=== PATIENT | female | born 1990 | race Caucasian/White ===

== ENCOUNTER 2023-03-12 11:19 | Emergency (ER) | payer MEDICARE, OTHER ==
[2023-03-12] MEDS ORDERED: KETOROLAC 15 MG/ML 1 ML VIAL IVP STA ×2 (11:48→15:04)
--- NOTE | 2023-03-12 11:51 | ED ---
Skin/Abscess/FB HPI - General Chief complaint: Skin/Abscess/Foreign Body Stated complaint: Cyst on Labia Time Seen by Provider: 03/12/23 11:31 Source: patient, RN notes reviewed Mode of arrival: ambulatory Limitations: no limitations - History of Present Illness Initial comments: This is a 32-year-old female who presents to the emergency department for an abscess on her labia. States that this started a couple of days ago. She is currently being treated at [facility], and states that she is no longer able to sit as a result of the pain. [facility] subsequently sent her to the emergency department to hopefully have this drained. States that she has developed cysts in the labia and axilla regions multiple times in the past. Some have been able to be simply drained and others have required surgery when they have gotten deeper. She denies any fevers or chills. She has not yet noticed any drainage from this. Denies any fevers, chills, sore throat, cough, dyspnea, chest pain, palpitations, abdominal pain, nausea, vomiting, diarrhea, back pain, or headaches. MD complaint: abscess/boil - Related Data Previous Rx's Medication Instructions Recorded Cephalexin [Keflex] 500 mg PO Q6HR 10 Days #40 cap 03/12/23 Ibuprofen [Motrin] 800 mg PO Q8H PRN #30 tab 03/12/23 Sulfamethox-Tmp 800-160Mg [Bactrim 1 tab PO Q12HR 10 Days #20 tab 03/12/23 DS 800-160 mg] Allergies Allergy/AdvReac Type Severity Reaction Status Date / Time fluticasone [From Flonase] AdvReac Rapid Verified 03/12/23 11:21 Heart Rate Review of Systems ROS Statement: Those systems with pertinent positive or pertinent negative responses have been documented in the HPI. ROS Other: All systems not noted in ROS Statement are negative. Past Medical History Additional Past Medical History / Comment(s): at [facility] for meth clean for 28 days History of Any Multi-Drug Resistant Organisms: None Reported Past Surgical History: Section, Tonsillectomy, Tubal Ligation Additional Past Surgical History / Comment(s): cyst removal , brain aneurysm Past Psychological History: Anxiety, Bipolar, Depression Smoking Status: Current every day smoker Past Alcohol Use History: None Reported Past Drug Use History: Methamphetamine General Exam Limitations: no limitations General appearance: alert, in no apparent distress Head exam: Present: atraumatic, normocephalic, normal inspection Respiratory exam: Present: normal lung sounds bilaterally. Absent: respiratory distress, wheezes, rales, rhonchi, stridor Cardiovascular Exam: Present: regular rate, normal rhythm, normal heart sounds. Absent: systolic murmur, diastolic murmur, rubs, gallop, clicks External exam: Present: other (Abscess to the inferior most aspect of the right labia majora tracking inferiorly to the perineal region.) Neurological exam: Present: alert, oriented X3, CN II-XII intact Psychiatric exam: Present: normal affect, normal mood Course Vital Signs 03/12/23 03/12/23 03/12/23 11:21 13:38 14:20 Temperature 98.2 F 98.0 F Pulse Rate 72 68 66 Respiratory 17 18 18 Rate Blood Pressure 128/70 126/78 134/87 O2 Sat by Pulse 100 98 100 Oximetry Procedures - Incision & Drainage Consent Obtained: verbal consent Indication: abscess Site: vulva/vagina Size (cm): 5 Anesthetic Used: lidocaine 1% Amount (mLs): 2 I&D Cleaning Method: Alcohol Wipe Sterile Field Used?: Yes Scalpel Used: #11 Needle Aspiration Performed?: No Irrigation Performed?: Yes I&D Drainage Obtained: Pus, Blood Culture Obtained?: Yes Medical Decision Making - Medical Decision Making This is a 32-year-old female who presents to the emergency department for an abscess to the labia. Was pt. sent in by a medical professional or institution? @ -[facility] Did you speak to anyone other than the patient for history? @ -No Did you review nursing and triage notes? @ -Yes, and I agree, it is accurate with regards to the patient's symptoms. Were old charts reviewed? @ -No Differential Diagnosis? @ -Differential Abscess/Cyst: Abscess, cellulitis, phlegmon, lipoma, this is not meant to be an all-inclusive list. EKG interpreted by me (3pts min.)? @ -Not obtained X-rays interpreted by me (1pt min.)? @ -Not obtained CT interpreted by me (1pt min.)? @ -Computed tomography scan of the pelvis obtained. My interpretation identifies an abscess to the right labia and in the right perineal region. U/S interpreted by me (1pt. min.)? @ -Not obtained What testing was considered but not performed? (CT, X-rays, U/S, labs)? Why? @ -None What meds were considered but not given? Why? @ -None Did you discuss the management of the patient with other professionals? @ -No Did you reconcile home meds? @ -No Was smoking cessation discussed for >3mins.? @ -No Was critical care preformed (if so, how long)? @ -No Were there social determinants of health that impacted care today? How? (Homelessness, low income, unemployed, alcoholism, drug addiction, transportation, low edu. Level, literacy, decrease access to med. care, [facility], rehab)? @ -No Was there de-escalation of care discussed even if they declined? (Discuss DNR or withdrawal of care, Hospice)? @ -No What co-morbidities impacted this encounter? (DM, HTN, Smoking, COPD, CAD, Cancer, CVA, Hep., AIDS, mental health diagnosis, sleep apnea, morbid obesity)? @ -Morbid obesity Was patient admitted / discharged? @ -Discharged. Lab work obtained revealing mild leukocytosis and a mild elevation in her CRP. The abscess and induration were fairly extensive on physical examination, and we thus obtained a computed tomography scan of the pelvis to evaluate for depth. This revealed a right labial and right perirectal abscess. Based on the depth, I&D was performed in the emergency department. This was performed on the labial abscess, which was the most uncomfortable for the patient. A large amount of purulent drainage was expressed. Wound cultures obtained. She was given a dose of ceftriaxone and Bactrim in the emergency department. Given that the perirectal abscess was not horribly uncomfortable, and because the patient had difficulty with tolerating the I&D of the labial abscess, we avoided drainage of that at this time. Prescription for Keflex, Bactrim, and ibuprofen provided with dosing instructions reviewed. We did also make her an appointment with Gen. surgery for 03/15 for further evaluation of the perirectal abscess and recheck of the right labial abscess. Otherwise advised warm compresses and we discussed having her use a donut pillow to take pressure off of this area when she is seated. Undiagnosed new problem with uncertain prognosis? @ -None Drug Therapy requiring intensive monitoring for toxicity (Heparin, Nitro, Insulin, Cardizem)? @ -None Were any procedures done? @ -Incision and drainage of right labial abscess Diagnosis/symptom? @ -Right labial abscess, right perirectal abscess Acute, or Chronic, or Acute on Chronic? @ -Acute Uncomplicated (without systemic symptoms) or Complicated (systemic symptoms)? @ -Uncomplicated Side effects of treatment? @ -None Exacerbation, Progression, or Severe Exacerbation] @ -Not applicable Poses a threat to life or bodily function? @ -No Return precautions reviewed in depth, the patient is instructed to return to the emergency department with any new, worsening, or concerning symptoms. Patient verbalized understanding. This case was discussed in detail with the attending ED physician, Dr. Richards. Presentation, findings, and treatment plan discussed in detail as jen allen. - Lab Data Result diagrams: 03/12/23 12:19 03/12/23 12:19 Lab Results 03/12/23 03/12/23 03/12/23 Range/Units 12:19 12:19 12:19 WBC 11.5 H (3.8-10.6) k/uL RBC 4.23 (3.80-5.40) m/uL Hgb 11.7 (11.4-16.0) gm/dL Hct 36.9 (34.0-46.0) % MCV 87.4 (80.0-100.0) fL MCH 27.8 (25.0-35.0) pg MCHC 31.8 (31.0-37.0) g/dL RDW 14.7 (11.5-15.5) % Plt Count 245 (150-450) k/uL MPV 8.2 Neutrophils % 76 % Lymphocytes % 16 % Monocytes % 3 % Eosinophils % 2 % Basophils % 0 % Neutrophils # 8.8 H (1.3-7.7) k/uL Lymphocytes # 1.9 (1.0-4.8) k/uL Monocytes # 0.4 (0-1.0) k/uL Eosinophils # 0.3 (0-0.7) k/uL Basophils # 0.0 (0-0.2) k/uL Hypochromasia Slight Sodium 138 (137-145) mmol/L Potassium 4.3 (3.5-5.1) mmol/L Chloride 107 (98-107) mmol/L Carbon Dioxide 24 (22-30) mmol/L Anion Gap 7 mmol/L BUN 14 (7-17) mg/dL Creatinine 0.53 (0.52-1.04) mg/dL Est GFR (CKD-EPI)AfAm >90 (>60 ml/min/1.73 sqM) Est GFR (CKD-EPI)NonAf >90 (>60 ml/min/1.73 sqM) Glucose 89 (74-99) mg/dL Plasma Lactic Acid Tello 0.6 L (0.7-2.0) mmol/L Calcium 9.2 (8.4-10.2) mg/dL Total Bilirubin 0.6 (0.2-1.3) mg/dL AST 24 (14-36) U/L ALT 14 (4-34) U/L Alkaline Phosphatase 72 (38-126) U/L C-Reactive Protein 2.2 H (<1.0) mg/dL Total Protein 6.7 (6.3-8.2) g/dL Albumin 3.7 (3.5-5.0) g/dL HCG, Qual Not Detected - Radiology Data Radiology results: report reviewed, image reviewed Disposition Clinical Impression: Labial abscess, Perineal abscess Disposition: HOME SELF-CARE Instructions (If sedation given, give patient instructions): Abscess Incision and Drainage (ED), Abscess (ED) Additional Instructions: Return to the emergency department with any new, worsening, or concerning symptoms. Take both antibiotics as prescribed for 10 days. Alternate with ibuprofen and Tylenol as needed for pain relief. Apply warm compresses. Consider sitting on a donut shaped pillow to take pressure off of the affected a spencer. Follow-up with general surgery for further evaluation and management. Prescriptions: Sulfamethox-Tmp 800-160Mg [Bactrim DS 800-160 mg] 1 tab PO Q12HR 10 Days #20 tab Cephalexin [Keflex] 500 mg PO Q6HR 10 Days #40 cap Ibuprofen [Motrin] 800 mg PO Q8H PRN #30 tab PRN Reason: Pain Is patient prescribed a controlled substance at d/c from ED?: No Referrals: Nonstaff,Physician [Primary Care Provider] - 1-2 days Sam Mabry MD [STAFF PHYSICIAN] - 03/15/23 1:50 pm (Bring photo ID and insurance cards.)
[2023-03-12 12:51] LABS: Basophils % (A) 0 %; Eosinophils # (A) 0.3 k/uL (0-0.7); Eosinophils % (A) 2 %; HCT 36.9 % (34.0-46.0); HGB 11.7 gm/dL (11.4-16.0); Hypochromasia Slight; Lymphocytes # (A) 1.9 k/uL (1.0-4.8); Lymphocytes % (A) 16 %; MCH 27.8 pg (25.0-35.0); MCHC 31.8 g/dL (31.0-37.0); MCV 87.4 fL (80.0-100.0); Mean Platelet Volume 8.2; Monocytes # (A) 0.4 k/uL (0-1.0); Monocytes % (A) 3 %; Neutrophils # (A) 8.8 k/uL (1.3-7.7); Neutrophils % (A) 76 %; Platelet Count 245 k/uL (150-450); RBC 4.23 m/uL (3.80-5.40); RDW 14.7 % (11.5-15.5); WBC 11.5 k/uL (3.8-10.6)
[2023-03-12 13:07] LABS: ALT 14 U/L (4-34); African American GFR (CKD) >90 (>60 ml/min/1.73 sqM); Albumin 3.7 g/dL (3.5-5.0); Anion Gap 7 mmol/L; Blood Urea Nitrogen 14 mg/dL (7-17); C Reactive Protein 2.2 mg/dL (<1.0); Calcium 9.2 mg/dL (8.4-10.2); Carbon Dioxide 24 mmol/L (22-30); Chloride 107 mmol/L (98-107); Glucose 89 mg/dL (74-99); Non-African American GFR(CKD) >90 (>60 ml/min/1.73 sqM); Sodium 138 mmol/L (137-145); Total Bilirubin 0.6 mg/dL (0.2-1.3); Total Protein 6.7 g/dL (6.3-8.2)
[2023-03-12 13:09] LABS: HCG,Qualitative Serum Not Detected
[2023-03-12 13:10] LABS: AST 24 U/L (14-36); Potassium 4.3 mmol/L (3.5-5.1)
[2023-03-12 13:11] LABS: Alkaline Phosphatase 72 U/L (38-126)
[2023-03-12 13:41] VITALS: RESP 18; TEMP 98
--- NOTE | 2023-03-12 13:42 | CT ---
EXAMINATION TYPE: CT pelvis w con DATE OF EXAM: 03/12/2023 COMPARISON: None HISTORY: Perirectal/labial abscess CT DLP: 2706 mGycm CONTRAST: CT scan of the pelvis is performed without Oral Contrast and with IV Contrast, patient injected with 100 mL of Isovue 300. FINDINGS: PANCREAS: No inflammation. No distinct mass. SPLEEN: Partially imaged spleen appears to be enlarged. KIDNEYS/BLADDER: Partially imaged kidneys appear grossly unremarkable. BOWEL: Partially imaged bowel appears to be free of inflammatory process or wall thickening. GENITAL ORGANS: No gross abnormality. LYMPH NODES: No greater than 1cm abdominal or pelvic lymph nodes are appreciated. AORTA: No significant abnormality. OSSEOUS STRUCTURES: No significant abnormality is seen. OTHER: Right perirectal abscess is noted measuring approximately 2.8 cm. There is surrounding subcuta neous induration. There is also a right labial abscess or sebaceous cyst measuring 1.4 cm. There is a lso mild skin thickening and surrounding induration. IMPRESSION: 1. Right perirectal abscess is noted measuring approximately 2.8 cm. There is surrounding subcutaneou s induration. There is also a right labial abscess or sebaceous cyst measuring 1.4 cm. There is also mild skin thickening and surrounding induration. 2. Suspected splenomegaly.
[2023-03-12] MEDS ORDERED: LIDOCAINE 1% INJ 10MG/ML (20 ML MDV) SQ ONE (13:59)
[2023-03-12] MEDS ORDERED: LIDOCAINE-PRILOCAINE 2.5-2.5% CREAM 5 GM TUBE TOPICAL STA (13:59)
[2023-03-12] MEDS ORDERED: cefTRIAXone IN SWFI 1,000 MG/10 ML SYRINGE IVP STA (14:04)
[2023-03-12] MEDS ORDERED: SULFAMETHOX-TMP 800-160MG 1 EACH TAB PO STA (14:04)
[2023-03-12 14:21] VITALS: BP 134/87; PULSE 66
== END 2023-03-12 15:42 | disposition home or self-care (01) ==
LOC: EC 11:19
DX: L02.215 Cutaneous abscess of perineum (principal); N76.4 Abscess of vulva; F15.90 Other stimulant use, unspecified, uncomplicated; F17.200 Nicotine dependence, unspecified, uncomplicated; Z86.59 Personal history of other mental and behavioral disorders; Z88.8 Allergy status to other drugs, medicaments and biological substances
CPT/HCPCS: 36415; 80053; 83605; 85025; 86140; 84703; 87070; 87205; 72193; 56405; 99284; J2001; J0696; J1885; Q9967